=== PATIENT | female | born 1985 | race Two or more races ===

== ENCOUNTER 2023-11-05 08:00 | Day surgery (SDC) | payer OTHER ==
[2023-11-05 14:33] LABS: HEMATOCRIT 44.8 % (36.0-45.00); HEMOGLOBIN 15.7 g/dL (12.0-15.00); MEAN CORPUSCULAR HEMOGLOBIN 30.9 pg (27.00-32.0); MEAN CORPUSCULAR HGB CONC 35.1 g/dl (32.0-36.0); PLATELET COUNT 308 K/uL (150-450); RED BLOOD COUNT 5.09 M/uL (4.00-6.00); RED CELL DISTRIBUTION WIDTH 13.4 % (11.5-14.5)
[2023-11-05 15:00] LABS: INR 0.98; PARTIAL THROMBOPLASTIN TIME 28.7 SECONDS (22.0-34.0); PROTHROMBIN TIME 10.3 SECONDS (9.0-11.5)
[2023-11-05] MEDS ORDERED: CEFAZOLIN SODIUM 1,000 MG VIAL ONE (15:26)
[2023-11-05] MEDS ORDERED: POVIDONE-IODINE 118 ML BOTT TOP ONE (15:33)
[2023-11-05] MEDS ORDERED: MORPHINE SULFATE 4 MG/ML VIAL IV PRN (17:15)
[2023-11-05] MEDS ORDERED: PROMETHAZINE HCL 50 MG/ML AMPUL IM ONE (17:15)
[2023-11-05] MEDS ORDERED: CEFAZOLIN SODIUM 1,000 MG VIAL IV ONE (18:45)
== END 2023-11-05 20:55 | disposition home or self-care (01) ==
LOC: CIR.AMB 08:00
PROVIDERS: ATTEND Obstetrics & Gynecology
DX: O02.1 Missed abortion (principal); O72.2 Delayed and secondary postpartum hemorrhage